=== PATIENT | female | born 1980 | race Caucasian/White ===

== ENCOUNTER 2018-04-21 06:40 | Emergency (ER) | payer MEDICAID, OTHER, SELFPAY ==
[2018-04-21 07:12] VITALS: O2SAT 99
[2018-04-21] MEDS ORDERED: Tdap Vaccine 0.5 ml Vial (10-64 yrs) IM ONE ×2 (07:30→10:30)
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
[2018-04-21 11:12] VITALS: BP 109/67; PULSE 74; RESP 17; TEMP 98.2
== END 2018-04-21 10:45 | disposition home or self-care (01) ==
LOC: H.ER 06:40
DX: S00.83XA Contusion of other part of head, initial encounter (principal); Y04.0XXA Assault by unarmed brawl or fight, initial encounter; Y92.89 Other specified places as the place of occurrence of the external cause